=== PATIENT | female | born 1985 | race Caucasian/White ===

== ENCOUNTER 2021-03-25 22:07 | Emergency (ER) | payer OTHER ==
--- NOTE | 2021-03-25 22:20 | ED Physician Documentation ---
History of Present Illness - Stated complaint Stated Complaint: C+ EXPOSURE - History obtained from History obtained from: Patient - History of Present Illness Timing: Today (Patient has been feeling well but picked up her daughter from grandmother's house and noted the patient to have cough congestion and fever. Her daughter had been at [employer] last week from through Tuesday and then mom brought her to grandma's house and daughter spent days there.) Severity Comments: Mom with brief exposure to her daughter few days ago and now the child is i Quality: Mom with brief exposure to her daughter few days ago going from [facility] [place] to grandmothers house, and now the child is ill today. Child getting tested for COVID and mom asking for testing too. Camp attendees reportedly sick and tested positive for COVID. Review of Systems Constitutional: denies: Fever, Chills Nose: denies: Rhinorrhea / runny nose, Congestion Throat: denies: Sore throat Respiratory: denies: Cough GI: denies: Nausea, Vomiting, Diarrhea Neurologic: denies: Generalized weakness, Headache PD PAST MEDICAL HISTORY - Past Medical History Past Medical History: No - Present Medications Home Medications: Ambulatory Orders Medication Instructions Recorded Confirmed No Known Home Medications 03/25/21 03/25/21 - Allergies Allergies/Adverse Reactions: Allergies Allergy/AdvReac Type Severity Reaction Status Date / Time No Known Drug Allergies Allergy Verified 03/25/21 22:40 PD ED PE NORMAL - Vitals Vital signs reviewed: Yes - General General: Alert and oriented X 3, No acute distress, Well developed/nourished - Derm Derm: Normal color, Warm and dry - Neuro Neuro: Alert and oriented X 3, No motor deficit, Normal speech Results - Vitals Vitals: Vital Signs - 24 hr 03/25/21 03/26/21 22:30 00:24 Temperature 36.6 C Heart Rate 79 70 Respiratory 14 16 Rate Blood Pressure 119/75 O2 Saturation 96 97 Oxygen O2 Source Room air PD MEDICAL DECISION MAKING - ED course Complexity details: considered differential (Mom with brief exposure to her daughter few days ago and now the child is ill today. Child getting tested for COVID and mom asking for testing too. ), d/w patient Departure - Departure Disposition: 01 Home, Self Care Clinical Impression: Exposure to COVID-19 virus Condition: Stable Record reviewed to determine appropriate education?: Yes Comments: Your Covid test should result in 1 to 2 days. The results would be available through the patient portal. Would call with positive results. My Covid test you have a Covid test pending. You need to self quarantine until the result is done and negative. Do not leave your house. Do not get near anybody. The results should be done in 48 to 72 hours, but sometimes longer. We will call with a positive result, the fastest way to get a negative result for confirmation though is to go to the hospital website at [email or web address], click on the my [facility] tab and sign up for the patient portal. If any friends or family get sick and would like to have a Covid test done, but do not have signs or symptoms that would necessitate being hospitalized, we encourage testing through our coronavirus swabbing station, call [phone] to schedule an appointment. Discharge Date/Time: 03/26/21 00:25
[2021-03-25 22:40] VITALS: BP 119/75
== END 2021-03-26 00:25 | disposition home or self-care (01) ==
LOC: ED 22:07
DX: Z20.822 Contact with and (suspected) exposure to COVID-19 (principal)
CPT/HCPCS: 99281; 99283